=== PATIENT | male | born 1965 | race Caucasian/White ===

== ENCOUNTER 2019-02-05 16:06 | Outpatient (CLI) | payer SELFPAY | END 2019-02-05 16:07 | disposition critical access hospital (66) | LOC: EMS 16:06 | PROVIDERS: ATTEND Surgery | DX: R07.89 Other chest pain (principal); F41.9 Anxiety disorder, unspecified | CPT/HCPCS: A0425; A0429 ==

== ENCOUNTER 2019-02-05 16:35 | Emergency (ER) | payer SELFPAY ==
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
[2019-02-05 17:10] VITALS: BP 138/86
== END 2019-02-05 17:10 | disposition home or self-care (01) ==
LOC: ED 16:35
DX: F41.9 Anxiety disorder, unspecified (principal); R07.9 Chest pain, unspecified; R60.0 Localized edema; Z86.718 Personal history of other venous thrombosis and embolism
CPT/HCPCS: 93005; 99283